=== PATIENT | male | born 1960 | race African-American/Black ===

== ENCOUNTER 2016-06-18 13:26 | Emergency (ER) | payer MEDICAID ==
[~2016-06-18] VITALS: Ht 185.4 cm; Wt 111.1 kg
[2016-06-18] MEDS ORDERED: Lidocaine 1% Plain 30 ml INJ ONE (13:49)
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
[2016-06-18] MEDS ORDERED: SILVADENE20 GM TP (14:30)
[2016-06-18] MEDS ORDERED: Silver Sulfadiazine Cream 25gm TOPIC ONE (14:30)
[2016-06-18] MEDS ORDERED: HYDROCHLOROTHIA25 MG ORAL (14:42)
[2016-06-18 15:15] VITALS: BP 138/89
--- NOTE | 2016-06-19 12:17 | Cardiology Report ---
APPROVED REPORT EKG Measurement Heart [id number] Normal sinus rhythm Nonspecific T wave abnormality Abnormal ECG
--- NOTE | 2016-06-21 09:37 | Diagnostic Imaging Report ---
Indication: SOB Technique: One view of the chest Comparison: none Findings: Lungs and pleural spaces are clear. Heart size is normal. Impression: No acute process This agrees with the preliminary interpretation provided by the emergency room physician.
== END 2016-06-18 15:15 | disposition home or self-care (01) ==
LOC: EMR 14:10
DX: R60.0 Localized edema (principal); T25.321A Burn of third degree of right foot, initial encounter; X58.XXXA Exposure to other specified factors, initial encounter; Y92.9 Unspecified place or not applicable; Y99.8 Other external cause status
CPT/HCPCS: 71010; 93005; 99284; J2001

== ENCOUNTER 2017-04-13 12:52 | Emergency (ER) | payer MEDICAID, OTHER ==
[~2017-04-13] VITALS: Ht 185.4 cm; Wt 99.8 kg
[~2017-04-13 12:52] MED LIST: HYDROCHLOROTHIA25 MG ORAL; SILVADENE20 GM TP
--- NOTE | 2017-04-13 13:13 | Emergency Room Report ---
History of Present Illness General Chief Complaint: Abdominal Pain Source: Patient Present Illness HPI Patient presents with complaints of diarrhea Lower abdominal pain bilaterally 8 out of 10 pain Denies any obvious blood in the stool however he felt that he had some blood in the urine Denies any chest pain or shortness of breath Pain is fairly localized the lower abdomen bilaterally Denies any dysuria Patient had questionable low-grade fever Denies any recent travel denies any previous surgery Allergies: Coded Allergies: No Known Allergies (Unverified , 06/18/16) Patient History Past Medical History: see triage record Pertinent Family History: none Reviewed Nursing Documentation: PMH: Agreed, PSxH: Agreed Nursing Documentation-PMH Hx Cardiac Problems: No Hx Hypertension: No Hx Pacemaker: No Hx Asthma: No Hx COPD: No Hx Diabetes: No Hx Cancer: No Hx Dialysis: No History Of Psychiatric Problem: No Hx Neurological Problems: No Hx Cerebrovascular Accident: No Hx Seizures: No Review of Systems All Other Systems: negative except mentioned in HPI Physical Exam Vital Signs Date Time Temp Pulse Resp B/P (MAP) Pulse Ox O2 Delivery O2 Flow Rate FiO2 04/13/17 13:00 98.2 82 18 162/91 97 Room Air Sp02 EP Interpretation: reviewed, normal General Appearance: well appearing, no apparent distress Head: normocephalic, atraumatic Eyes: bilateral eye PERRL, bilateral eye EOMI ENT: hearing grossly normal, normal pharynx, TMs + canals normal, uvula midline Neck: full range of motion, supple, no meningismus, no bony tend Respiratory: lungs clear, normal breath sounds, no rhonchi, no respiratory distress, no retraction, no accessory muscle use Cardiovascular #1: normal peripheral pulses, regular rate, rhythm, no edema, no gallop, no JVD, no murmur Gastrointestinal: normal bowel sounds, soft, no mass, no organomegaly, non- distended, no guarding, no hernia, no pulsatile mass, no rebound, tenderness - Diffusely however no obvious peritoneal finding, Genitourinary: no CVA tenderness Musculoskeletal: normal inspection Neurologic: oriented x3, responsive, base engineer III-XII nml as tested, motor strength/ tone normal, sensory intact Psychiatric: mood/affect normal Skin: normal color, no rash, warm/dry, palpation normal Lymphatic: normal inspection, no adenopathy Medical Decision Making Diagnostic Impression: Primary Impression: Abdominal pain ER Course With the history exam and presentation, multiple differentials considered, including but not limited to appendicitis, gastritis, cholecystitis, diverticulitis Patient's blood work and imaging did not show any obvious acute disease Patient feel significantly better Bladder is mildly thick on the CAT scan however urine sample was clear Patient was placed on antibiotics given the duration of diarrhea And will have close outpatient followup Labs Test 04/13/17 13:13 04/13/17 13:30 Urine Color Pale yellow Urine Appearance Clear Urine pH 5 (4.5-8.0) Urine Specific [place] 1.005 (1.005-1.035) Urine Protein Negative (NEGATIVE) Urine Glucose (UA) Negative (NEGATIVE) Urine Ketones Negative (NEGATIVE) Urine Occult Blood Negative (NEGATIVE) Urine Nitrite Negative (NEGATIVE) Urine Bilirubin Negative (NEGATIVE) Urine Urobilinogen Normal MG/DL (0.0-1.0) Urine Leukocyte Esterase Negative (NEGATIVE) White Blood Count 6.3 K/UL (4.8-10.8) Red Blood Count 4.54 M/UL (4.70-6.10) Hemoglobin 15.7 G/DL (14.2-18.0) Hematocrit 43.6 % (42.0-52.0) Mean Corpuscular Volume 96 FL (80-99) Mean Corpuscular Hemoglobin 34.6 PG (27.0-31.0) Mean Corpuscular Hemoglobin Concent 36.0 G/DL (32.0-36.0) Red Cell Distribution Width 10.4 % (11.6-14.8) Platelet Count 119 K/UL (150-450) Mean Platelet Volume 10.6 FL (6.5-10.1) Neutrophils (%) (Auto) 59.9 % (45.0-75.0) Lymphocytes (%) (Auto) 32.2 % (20.0-45.0) Monocytes (%) (Auto) 5.9 % (1.0-10.0) Eosinophils (%) (Auto) 1.0 % (0.0-3.0) Basophils (%) (Auto) 1.1 % (0.0-2.0) Sodium Level 138 MMOL/L (136-145) Potassium Level 3.3 MMOL/L (3.5-5.1) Chloride Level 104 MMOL/L (98-107) Carbon Dioxide Level 21 MMOL/L (21-32) Anion Gap 13 mmol/L (5-15) Blood Urea Nitrogen 13 mg/dL (7-18) Creatinine 1.1 MG/DL (0.55-1.30) Estimat Glomerular Filtration Rate > 60 mL/min (>60) Glucose Level 103 MG/DL (74-106) Calcium Level 9.2 MG/DL (8.5-10.1) Total Bilirubin 0.5 MG/DL (0.2-1.0) Aspartate Amino Transf (AST/SGOT) 25 U/L (15-37) Alanine Aminotransferase (ALT/SGPT) 39 U/L (12-78) Alkaline Phosphatase 65 U/L (46-116) Total Protein 7.7 G/DL (6.4-8.2) Albumin 3.6 G/DL (3.4-5.0) Globulin 4.1 g/dL Albumin/Globulin Ratio 0.9 (1.0-2.7) Lipase 225 U/L (73-393) CT/MRI/US Diagnostic Results CT/MRI/US Diagnostic Results : Impression CT abdomen pelvis: no acute disease Last Vital Signs Date Time Temp Pulse Resp B/P (MAP) Pulse Ox O2 Delivery O2 Flow Rate FiO2 04/13/17 13:00 98.2 82 18 162/91 97 Room Air Status: improved Disposition: HOME, SELF-CARE Condition: Improved Scripts Acetaminophen With Codeine (T#3) (TYLENOL #3 TAB*) Y Tab 1 TAB ORAL Q8H Y for For Pain, #12 TAB Prov: ENRIQUE YOUNG D.O. 04/13/17 Ciprofloxacin Hcl* (CIPROFLOXACIN HCL*) 500 Mg Tablet 500 MG ORAL Q12H, #10 TAB 0 Refills Prov: ENRIQUE YOUNG D.O. 04/13/17 Additional Instructions: Patient is provided with the discharge instructions notified to follow up with primary doctor in the next 2-3 days otherwise return to the er with any worsening symptoms. Please note that this report is being documented using [employer] technology. This can lead to erroneous entry secondary to incorrect interpretation by the dictating instrument. ENRIQUE YOUNG D.O. Apr 13, 2017 13:13
[2017-04-13] MEDS ORDERED: Morphine Sulfate 4mg/ml Inj IVP ONE (13:15)
[2017-04-13 13:26] LABS: APPEARANCE,URINE CLEAR; KETONES,URINE NEGATIVE (NEGATIVE); LEUKOCYTE ESTERASE ,URINE NEGATIVE (NEGATIVE); NITRITE,URINE NEGATIVE (NEGATIVE); PH,URINE 5 (4.5-8.0); PROTEIN,URINE NEGATIVE (NEGATIVE); UROBILINOGEN,URINE NORMAL MG/DL (0.0-1.0)
[2017-04-13 13:30] VITALS: BP 155/96
[2017-04-13 13:42] LABS: BASOPHILS % (AUTO) 1.1 % (0.0-2.0); LYMPHOCYTES % (AUTO) 32.2 % (20.0-45.0); MEAN CORPUSCULAR HEMOGLOBIN 34.6 PG (27.0-31.0); MEAN CORPUSCULAR VOLUME 96 FL (80-99); MEAN PLATELET VOLUME 10.6 FL (6.5-10.1); MONOCYTES % (AUTO) 5.9 % (1.0-10.0); NEUTROPHILS % (AUTO) 59.9 % (45.0-75.0); PLATELET COUNT 119 K/UL (150-450); RED BLOOD COUNT 4.54 M/UL (4.70-6.10); RED CELL DISTRIBUTION WIDTH 10.4 % (11.6-14.8); WHITE BLOOD COUNT 6.3 K/UL (4.8-10.8)
[2017-04-13 13:53] LABS: ANION GAP 13 mmol/L (5-15); CALCIUM 9.2 MG/DL (8.5-10.1); CARBON DIOXIDE 21 MMOL/L (21-32); CHLORIDE 104 MMOL/L (98-107); CREATININE 1.1 MG/DL (0.55-1.30); GLOMERULAR FILTRATION RATE > 60 mL/min (>60); POTASSIUM 3.3 MMOL/L (3.5-5.1); SODIUM 138 MMOL/L (136-145)
[2017-04-13 13:58] LABS: ALANINE AMINOTRANSFERASE 39 U/L (12-78); ALBUMIN/GLOBULIN RATIO 0.9 (1.0-2.7); ASPARTATE AMINO TRANSFERASE 25 U/L (15-37); LIPASE 225 U/L (73-393); TOTAL PROTEIN 7.7 G/DL (6.4-8.2)
[2017-04-13] MEDS ORDERED: CIPROFLOXACIN500 M2 ORAL (14:37)
[2017-04-13] MEDS ORDERED: ACETAMINOPHEN-1 EAC1 ORAL (14:37)
[2017-04-13 15:44] VITALS: BP 148/88
--- NOTE | 2017-04-14 10:50 | Diagnostic Imaging Report ---
Indication: Abdominal pain Technique: CT of the abdomen and pelvis utilizing automated exposure control with intravenous contrast. Venous scanning performed. CT dose: Total DLP 889 mGycm; CTDI vol 17.5 mGy Comparison: None Findings: Lung bases are clear. The liver, adrenal glands, spleen and pancreas are grossly unremarkable. No CT evident gallstones are identified. The kidneys are unremarkable. There is limited evaluation of the bowel without oral contrast. No mechanical small bowel obstruction is identified. There is no appendicitis. There is mild colonic diverticulosis without diverticulitis. Small fat-containing bilateral inguinal hernias are seen. The bladder appears thickened. Atherosclerotic changes are present. Degenerative changes of the spine are seen. There is anterolisthesis of L5 on S1 with bilateral L5 pars defects. There is severe disc space narrowing and endplate sclerosis of L5/S1. Degenerative changes of the bilateral hips are also seen. Impression: Bladder wall thickening may be secondary to chronic outlet obstruction, inflammatory or neoplastic. Clinical correlation recommended. Small fat-containing bilateral inguinal hernias. Anterolisthesis of L5 on S1 with bilateral L5 pars defects. The CT scanner at [facility] is accredited by the [employer] and the scans are performed using protocols designed to limit radiation exposure to as low as reasonably achievable to attain images of sufficient resolution adequate for diagnostic evaluation.
== END 2017-04-13 15:48 | disposition home or self-care (01) ==
LOC: EMR 13:36
DX: R10.30 Lower abdominal pain, unspecified (principal); R19.7 Diarrhea, unspecified; K40.20 Bilateral inguinal hernia, without obstruction or gangrene, not specified as recurrent
CPT/HCPCS: 36415; 74177; 80053; 81003; 83690; 85025; 96374; 96375; 99284; J2270; J2405; Q9967

== ENCOUNTER 2017-04-28 20:23 | Emergency (ER) | payer OTHER ==
[~2017-04-28] VITALS: Ht 185.4 cm; Wt 104.3 kg
[~2017-04-28 20:23] MED LIST changes: +ACETAMINOPHEN-1 EAC1 ORAL; +CIPROFLOXACIN500 M2 ORAL
[2017-04-28 20:52] LABS: APPEARANCE,URINE CLEAR; KETONES,URINE NEGATIVE (NEGATIVE); LEUKOCYTE ESTERASE ,URINE 1+ (NEGATIVE); NITRITE,URINE NEGATIVE (NEGATIVE); PH,URINE 5 (4.5-8.0); PROTEIN,URINE NEGATIVE (NEGATIVE); UROBILINOGEN,URINE NORMAL MG/DL (0.0-1.0)
[2017-04-28 20:56] LABS: BACTERIA,URINE FEW /HPF; SQUAMOUS EPITHELIAL CELL,UR OCCASIONAL /LPF (NONE/OCC); WBC,URINE 0-2 /HPF (0 - 0)
[2017-04-28 21:43] VITALS: BP_SYST 137; BP_SYST 141; BP_DIAS 83; BP_DIAS 85
--- NOTE | 2017-04-29 07:31 | Emergency Room Report ---
History of Present Illness General Chief Complaint: Male Urogenital Problems Source: Patient Present Illness HPI Patient presents with reports of blood in his urine Patient was seen here recently for similar complaints At that time there was no evidence of any blood in the urine Patient reports that earlier today he had seen some discoloration of the urine However on obtaining urine sample in the ER he did not see any obvious clinical blood Patient denies any abdominal pain Denies any fevers or chills Denies any chest pain shortness of breath Denies any dysuria frequency Allergies: Coded Allergies: No Known Allergies (Unverified , 06/18/16) Patient History Past Medical History: see triage record Past Surgical History: none Reviewed Nursing Documentation: PMH: Agreed, PSxH: Agreed Nursing Documentation-PMH Past Medical History: No Stated History Hx Cardiac Problems: No Hx Hypertension: No Hx Pacemaker: No Hx Asthma: No Hx COPD: No Hx Diabetes: No Hx Cancer: No Hx Dialysis: No Hx Neurological Problems: No Hx Cerebrovascular Accident: No Hx Seizures: No Review of Systems All Other Systems: negative except mentioned in HPI Physical Exam Vital Signs Date Time Temp Pulse Resp B/P (MAP) Pulse Ox O2 Delivery O2 Flow Rate FiO2 04/28/17 20:29 97.9 92 17 137/85 98 Room Air Sp02 EP Interpretation: reviewed, normal General Appearance: well appearing, no apparent distress Head: normocephalic, atraumatic Eyes: bilateral eye PERRL, bilateral eye EOMI ENT: hearing grossly normal, normal pharynx, TMs + canals normal, uvula midline Neck: full range of motion, supple, no meningismus, no bony tend Respiratory: lungs clear, normal breath sounds, no rhonchi, no respiratory distress, no retraction, no accessory muscle use Cardiovascular #1: normal peripheral pulses, regular rate, rhythm, no edema, no gallop, no JVD, no murmur Gastrointestinal: normal bowel sounds, non tender, soft, no mass, no organomegaly, non-distended, no guarding, no hernia, no pulsatile mass, no rebound Genitourinary: no CVA tenderness Musculoskeletal: normal inspection Neurologic: oriented x3, responsive, shank faker III-XII nml as tested, motor strength/ tone normal, sensory intact Psychiatric: mood/affect normal Skin: normal color, no rash, warm/dry, palpation normal Lymphatic: normal inspection, no adenopathy Medical Decision Making Diagnostic Impression: Primary Impression: hematuria ER Course Multiple differentials considered including but not limited to kidney stone, cancer, infectious Patient's workup reviewed from previous Urine sample today do show some microscopic blood Patient was discussed regarding his previous CAT scan And the thickening of the bladder wall Patient has not seen his primary physician since his last discharge it was again discussed the importance of followup with his primary physician for urology referral As the patient requires a cystoscopy for close evaluation and possible biopsy of the bladder Patient verbalizes understanding and will have close followup Labs Test 04/28/17 20:43 Urine Color Pale yellow Urine Appearance Clear Urine pH 5 (4.5-8.0) Urine Specific [place] 1.010 (1.005-1.035) Urine Protein Negative (NEGATIVE) Urine Glucose (UA) Negative (NEGATIVE) Urine Ketones Negative (NEGATIVE) Urine Occult Blood 5+ (NEGATIVE) Urine Nitrite Negative (NEGATIVE) Urine Bilirubin Negative (NEGATIVE) Urine Urobilinogen Normal MG/DL (0.0-1.0) Urine Leukocyte Esterase 1+ (NEGATIVE) Urine RBC 10-15 /HPF (0 - 0) Urine WBC 0-2 /HPF (0 - 0) Urine Squamous Epithelial Cells Occasional /LPF Urine Bacteria Few /HPF (NONE) Last Vital Signs Date Time Temp Pulse Resp B/P (MAP) Pulse Ox O2 Delivery O2 Flow Rate FiO2 04/28/17 21:43 97.9 76 17 141/83 98 Room Air Status: unchanged Disposition: HOME, SELF-CARE Condition: Stable Referrals: NOT CHOSEN IPA/MD,REFERRING (PCP) Patient Instructions: Hematuria, Adult Additional Instructions: Your urine sample showed some microscopic evidence of blood, your CAT scan had also shown some thickening of the bladder wall. He require a cystoscopy ( camera into the bladder) with possible biopsy for further evaluation. This is an outpatient process However it does require urgent followup with your primary physician ENRIQUE YOUNG D.O. Apr 29, 2017 07:31
== END 2017-04-28 21:41 | disposition home or self-care (01) ==
LOC: EMR 20:56
DX: R31.9 Hematuria, unspecified (principal)
CPT/HCPCS: 81003; 99282

== ENCOUNTER 2018-02-07 06:21 | Emergency (ER) | payer OTHER ==
[~2018-02-07] VITALS: Ht 185.4 cm; Wt 108.9 kg
--- NOTE | 2018-02-07 06:24 | Emergency Room Report ---
History of Present Illness General Source: EMS (Jeff Otoole MD) Present Illness HPI Patient is a 57-year-old male who presented after increased abdominal pain. Patient reports having right-sided abdominal pain. The distal been present for one day. Patient reports having recent heavy alcohol consumption. He cannot quantify this. He denies any hematemesis. He reports having multiple episodes of vomiting. He denies bloody stool. He states that he had similar symptoms in the past was diagnosed with pancreatitis at the time.Patient was sharp in nature. (Jeff Otoole MD) Allergies: Coded Allergies: No Known Allergies (Unverified , 06/18/16) Patient History Past Medical History: see triage record, other - pancreatitis Reviewed Nursing Documentation: PMH: Agreed; PSxH: Agreed (Jeff Otoole MD) Nursing Documentation-PMH Hx Cardiac Problems: No Hx Hypertension: No Hx Pacemaker: No Hx Asthma: No Hx COPD: No Hx Diabetes: No Hx Cancer: No Hx Dialysis: No Hx Neurological Problems: No Hx Cerebrovascular Accident: No Hx Seizures: No (Jeff Otoole MD) Review of Systems All Other Systems: negative except mentioned in HPI (Jeff Otoole MD) Physical Exam Sp02 EP Interpretation: reviewed, normal General Appearance: normal inspection, well appearing, no apparent distress, alert, GCS 15, obese, Chronically Ill Head: atraumatic ENT: normal ENT inspection, hearing grossly normal, normal voice Neck: normal inspection, full range of motion, supple, no bony tend Respiratory: normal inspection, lungs clear, normal breath sounds, no respiratory distress, no retraction, no wheezing Cardiovascular #1: regular rate, rhythm, edema - trace Gastrointestinal: normal inspection, normal bowel sounds, soft, tenderness Genitourinary: no CVA tenderness Musculoskeletal: normal inspection, back normal, normal range of motion Neurologic: normal inspection, alert, oriented x3, responsive, watch inspector III-XII nml as tested, speech normal Psychiatric: normal inspection, judgement/insight normal, mood/affect normal Skin: normal inspection, normal color, no rash (Jeff Otoole MD) Medical Decision Making Diagnostic Impression: Primary Impression: Abdominal pain Qualified Codes: R10.9 - Unspecified abdominal pain Additional Impressions: Acute pancreatitis Qualified Codes: K85.20 - Alcohol induced acute pancreatitis without necrosis or infection Alcohol abuse ER Course Patient presented for abdominal pain. Differential diagnoses included ischemic bowel, appendicitis, perforated viscus, abdominal aortic aneurysm, inferior myocardial infarction, viral gastroenteritis Because of complexity of patient's case laboratory testing and imaging studies were ordered.The patient noted to have of prior history of pancreatitis. Patient given IV fluids as well as IV pain medications. (Jeff Otoole MD) ER Course Please see above note from Dr. Otoole. Abd exam soft. Points to L anterior flank as area of pain. No referred pain or rebound. Analgesia ordered along with Pepcid and fluids. Await labs and eval. Lipase 500. Ultrasound ordered. Repeated morphine. u/s No stones. Calling Dr. Beyer for transfer. Laboratory Tests Test 02/07/18 06:30 02/07/18 06:55 White Blood Count 6.7 K/UL (4.8-10.8) Red Blood Count 4.94 M/UL (4.70-6.10) Hemoglobin 16.1 G/DL (14.2-18.0) Hematocrit 45.4 % (42.0-52.0) Mean Corpuscular Volume 92 FL (80-99) Mean Corpuscular Hemoglobin 32.5 PG (27.0-31.0) H Mean Corpuscular Hemoglobin Concent 35.4 G/DL (32.0-36.0) Red Cell Distribution Width 10.7 % (11.6-14.8) L Platelet Count 133 K/UL (150-450) L Mean Platelet Volume 10.4 FL (6.5-10.1) H Neutrophils (%) (Auto) 61.8 % (45.0-75.0) Lymphocytes (%) (Auto) 29.2 % (20.0-45.0) Monocytes (%) (Auto) 5.1 % (1.0-10.0) Eosinophils (%) (Auto) 2.3 % (0.0-3.0) Basophils (%) (Auto) 1.6 % (0.0-2.0) Prothrombin Time 11.4 SEC (9.30-11.50) Prothrombin Time INR 1.1 (0.9-1.1) PTT 28 SEC (23-33) Sodium Level 134 MMOL/L (136-145) L Potassium Level 4.2 MMOL/L (3.5-5.1) Chloride Level 102 MMOL/L (98-107) Carbon Dioxide Level 23 MMOL/L (21-32) Anion Gap 9 mmol/L (5-15) Blood Urea Nitrogen 16 mg/dL (7-18) Creatinine 1.0 MG/DL (0.55-1.30) Estimate Glomerular Filtration Rate > 60 mL/min (>60) Glucose Level 96 MG/DL (74-106) Calcium Level 8.8 MG/DL (8.5-10.1) Total Bilirubin 0.7 MG/DL (0.2-1.0) Aspartate Amino Transferase (AST) 35 U/L (15-37) Alanine Aminotransferase (ALT) 27 U/L (12-78) Alkaline Phosphatase 65 U/L (46-116) Troponin I 0.000 ng/mL (0.000-0.056) Total Protein 7.9 G/DL (6.4-8.2) Albumin 3.7 G/DL (3.4-5.0) Globulin 4.2 g/dL Albumin/Globulin Ratio 0.9 (1.0-2.7) L Amylase Level 86 U/L (25-115) Lipase 500 U/L (73-393) H Serum Alcohol < 3 mg/dL Urine Color Yellow Urine Appearance Clear Urine pH 5 (4.5-8.0) Urine Specific [place] 1.025 (1.005-1.035) Urine Protein Negative (NEGATIVE) Urine Glucose (UA) Negative (NEGATIVE) Urine Ketones Negative (NEGATIVE) Urine Blood 2+ (NEGATIVE) H Urine Nitrite Negative (NEGATIVE) Urine Bilirubin Negative (NEGATIVE) Urine Urobilinogen Normal MG/DL (0.0-1.0) Urine Leukocyte Esterase 1+ (NEGATIVE) H Urine RBC 2-4 /HPF (0 - 0) H Urine WBC 2-4 /HPF (0 - 0) Urine Squamous Epithelial Cells Few /LPF (NONE/OCC) Urine Bacteria Occasional /HPF (NONE) (Luis Flanagan M.D.) EKG Diagnostic Results Rate: normal Rhythm: NSR ST Segments: no acute changes - NSSTTW changes (Luis Flanagan M.D.) Rhythm Strip Diag. Results EP Interpretation: yes Rhythm: NSR, no PVC's, no ectopy (Luis Flanagan M.D.) CT/MRI/US Diagnostic Results CT/MRI/US Diagnostic Results : Imaging Test Ordered: U/S Impression Impression: Essentially unremarkable exam. Negative for gallstones or dilated ducts Incidental finding small left renal cyst (Luis Flanagan M.D.) Last Vital Signs Date Time Temp Pulse Resp B/P (MAP) Pulse Ox O2 Delivery O2 Flow Rate FiO2 02/07/18 10:58 98.5 02/07/18 10:33 87 17 167/91 96 Room Air Status: improved (Luis Flanagan M.D.) Disposition: XFER SHT-TRM HOSP Condition: Serious Jeff Otoole MD Feb 07, 2018 06:24 Luis Flanagan M.D. Feb 07, 2018 06:41
[2018-02-07 06:25] VITALS: BP 181/98
[2018-02-07] MEDS ORDERED: NKM (06:27)
[2018-02-07] MEDS ORDERED: Morphine Sulfate 4mg/ml Inj (IV USE ONLY) IVP ONE ×3 (06:30→10:30)
[2018-02-07 06:56] LABS: BASOPHILS % (AUTO) 1.6 % (0.0-2.0); EOSINOPHILS % (AUTO) 2.3 % (0.0-3.0); HEMATOCRIT 45.4 % (42.0-52.0); HEMOGLOBIN 16.1 G/DL (14.2-18.0); LYMPHOCYTES % (AUTO) 29.2 % (20.0-45.0); MEAN CORPUSCULAR VOLUME 92 FL (80-99); MONOCYTES % (AUTO) 5.1 % (1.0-10.0); NEUTROPHILS % (AUTO) 61.8 % (45.0-75.0); PLATELET COUNT 133 K/UL (150-450); RED BLOOD COUNT 4.94 M/UL (4.70-6.10); RED CELL DISTRIBUTION WIDTH 10.7 % (11.6-14.8); WHITE BLOOD COUNT 6.7 K/UL (4.8-10.8)
[2018-02-07 07:06] LABS: INR 1.1 (0.9-1.1)
[2018-02-07 07:14] LABS: APPEARANCE,URINE CLEAR; BILIRUBIN, URINE NEGATIVE (NEGATIVE); GLUCOSE, URINE (UA) NEGATIVE (NEGATIVE); KETONES,URINE NEGATIVE (NEGATIVE); LEUKOCYTE ESTERASE ,URINE 1+ (NEGATIVE); NITRITE,URINE NEGATIVE (NEGATIVE); PH,URINE 5 (4.5-8.0); PROTEIN,URINE NEGATIVE (NEGATIVE); UROBILINOGEN,URINE NORMAL MG/DL (0.0-1.0)
[2018-02-07 07:20] VITALS: BP 164/86
[2018-02-07 07:27] LABS: COLOR,URINE YELLOW
[2018-02-07 07:27] LABS: ANION GAP 9 mmol/L (5-15); BLOOD UREA NITROGEN 16 mg/dL (7-18); CALCIUM 8.8 MG/DL (8.5-10.1); CARBON DIOXIDE 23 MMOL/L (21-32); CHLORIDE 102 MMOL/L (98-107); POTASSIUM 4.2 MMOL/L (3.5-5.1); SODIUM 134 MMOL/L (136-145)
[2018-02-07 07:29] LABS: ALANINE AMINOTRANSFERASE 27 U/L (12-78); ALBUMIN 3.7 G/DL (3.4-5.0); ALBUMIN/GLOBULIN RATIO 0.9 (1.0-2.7); ALKALINE PHOSPHATASE 65 U/L (46-116); AMYLASE 86 U/L (25-115); ASPARTATE AMINO TRANSFERASE 35 U/L (15-37); BILIRUBIN,TOTAL 0.7 MG/DL (0.2-1.0)
[2018-02-07 08:30] VITALS: BP 167/91
--- NOTE | 2018-02-07 09:38 | Diagnostic Imaging Report ---
Indication: Abdominal pain, vomiting, right-sided abdominal pain, abnormal lipase Technique: Verma-scale and duplex images of the upper abdomen were obtained Comparison: Reference made to abdomen and pelvis CT dated 04/13/2017 Findings: Gallbladder is unremarkable, without stones, wall thickening, nor pericholecystic fluid. Sonographic Clay's sign is negative. Common bile duct measures 6 mm in diameter. No intrahepatic biliary ductal dilatation. Liver demonstrates normal echogenicity, no focal abnormality. Portal vein and hepatic veins are patent. Pancreas is unremarkable. Spleen is unremarkable. Left kidney measures 10.5 cm in length. Right kidney measures 10.9 cm length. Both kidneys demonstrate normal echogenicity. There is no hydronephrosis. Echogenic foci within the renal sinuses are probably artifactual as no calculi are demonstrated on prior CT scan. Small cyst is seen in the left renal upper pole . Non-aneurysmal abdominal aorta . Impression: Essentially unremarkable exam. Negative for gallstones or dilated ducts Incidental finding small left renal cyst
[2018-02-07 09:45] VITALS: BP 166/94
[2018-02-07 10:33] VITALS: BP 167/91
== END 2018-02-07 10:35 | disposition short-term general hospital (02) ==
LOC: EDBD 06:21 → EMR 06:39
DX: K85.20 Alcohol induced acute pancreatitis without necrosis or infection (principal); F10.10 Alcohol abuse, uncomplicated; N28.1 Cyst of kidney, acquired
CPT/HCPCS: 36415; 76700; 80053; 80329; 81003; 82150; 83690; 84484; 85025; 85610; 85730; 86850; 86900; 86901; 93005; 96361; 96374; 96375; 96376; 99284; J2270; J2405; S0028

== ENCOUNTER 2018-04-26 11:18 | Emergency (ER) | payer OTHER ==
[~2018-04-26] VITALS: Ht 185.4 cm; Wt 108.9 kg
[~2018-04-26 11:18] MED LIST changes: +NKM
[2018-04-26 11:35] VITALS: BP 179/99
[2018-04-26] MEDS ORDERED: Morphine Sulfate 10mg/ml Inj IVP ONE (12:15)
[2018-04-26 12:26] LABS: BASOPHILS % (AUTO) 0.8 % (0.0-2.0); HEMATOCRIT 46.2 % (42.0-52.0); HEMOGLOBIN 16.3 G/DL (14.2-18.0); LYMPHOCYTES % (AUTO) 19.7 % (20.0-45.0); MEAN CORPUSCULAR VOLUME 91 FL (80-99); MONOCYTES % (AUTO) 6.1 % (1.0-10.0); NEUTROPHILS % (AUTO) 72.5 % (45.0-75.0); PLATELET COUNT 161 K/UL (150-450); RED BLOOD COUNT 5.05 M/UL (4.70-6.10); RED CELL DISTRIBUTION WIDTH 10.9 % (11.6-14.8); WHITE BLOOD COUNT 8.7 K/UL (4.8-10.8)
[2018-04-26 12:43] LABS: ANION GAP 12 mmol/L (5-15); BLOOD UREA NITROGEN 15 mg/dL (7-18); CALCIUM 8.6 MG/DL (8.5-10.1); CARBON DIOXIDE 25 MMOL/L (21-32); CHLORIDE 99 MMOL/L (98-107); CREATININE 1.2 MG/DL (0.55-1.30); SODIUM 135 MMOL/L (136-145)
[2018-04-26 12:48] LABS: ALANINE AMINOTRANSFERASE 47 U/L (12-78); ALBUMIN 3.5 G/DL (3.4-5.0); ALBUMIN/GLOBULIN RATIO 0.8 (1.0-2.7); ALKALINE PHOSPHATASE 64 U/L (46-116); ASPARTATE AMINO TRANSFERASE 43 U/L (15-37); BILIRUBIN,TOTAL 0.6 MG/DL (0.2-1.0)
[2018-04-26] MEDS ORDERED: oxyCODONE HCL/Acetaminophen 5/325mg ORAL ONE ×2 (13:30→16:15)
[2018-04-26] MEDS ORDERED: Morphine Sulfate 4mg/ml Inj (IV/IM USE ONLY) IVP ONE (13:30)
[2018-04-26 13:40] VITALS: BP 165/70
--- NOTE | 2018-04-26 14:01 | Diagnostic Imaging Report ---
Clinical Indication: Abdominal pain, right lower quadrant pain, nausea, vomiting, diarrhea Technique: No oral contrast utilized, per emergency room physician request IV administration nonionic contrast. Venous phase spiral acquisition obtained through the abdomen and pelvis. Multiplanar reconstructions were generated. Total dose length product 909.53 mGycm. CTDIvol(s) 17.05 mGy. Dose reduction achieved using automated exposure control Comparison: 04/13/2017 Findings: There is infiltration of the peripancreatic fat. Ill-defined fluid is seen tracking along the fascial planes immediately adjacent to the pancreas, particularly the upper left paracolic gutter. The pancreas itself does not appear particularly swollen. No peripancreatic gas or discrete fluid collections demonstrated. The pancreas enhances normally. No pancreatic mass. No peripancreatic adenopathy. Findings are new since prior exam The gallbladder is unremarkable. The liver, bile ducts, spleen, adrenals, kidneys are unremarkable. No retroperitoneal or mesenteric mass or adenopathy. No pelvic mass or adenopathy. The bladder is mildly thick-walled. This is also evident previously. Lack of enteric contrast limits assessment of the GI tract. No evidence of diverticulosis or diverticulitis. The appendix is normal. No small bowel distention. No free or loculated intraperitoneal gas or fluid. The distal esophagus, stomach, duodenum are unremarkable. The bones demonstrate bilateral L5 spondylolysis, grade 1 L5 on S1 and spondylolisthesis, and secondary degenerative changes at L5-S1, also previously reported. The included lung bases demonstrate posterior dependent atelectatic changes on the right. Impression: Infiltration of the peripancreatic fat, small amount of fluid tracking along the adjacent fascial planes, consistent with uncomplicated nonnecrotizing acute pancreatitis. No evidence of associated discrete peripancreatic fluid collection or abscess. Correlate with laboratory findings Mild bladder wall thickening. Similarity to prior exam indicates this may be baseline for this patient, possibly on the basis of chronic outlet obstruction given degree of bladder distention. However, the possibility of cystitis should also be considered Bilateral L5 spondylolysis, grade 1 L5 on S1 spondylolisthesis, secondary degenerative changes, also previously reported The CT scanner at [facility] is accredited by the [employer] and the scans are performed using protocols designed to limit radiation exposure to as low as reasonably achievable to attain images of sufficient resolution adequate for diagnostic evaluation.
--- NOTE | 2018-04-26 14:48 | Emergency Room Report ---
History of Present Illness General Chief Complaint: Abdominal Pain Source: Patient, Medical Record Present Illness HPI Mr. Gomez is a pleasant 58 yo male with hx of alcoholic pancreatitis who presents with severe 10/10 pain in the epigastric region for severe days. Unbearable today. Severe sharp pain. Had been clean of alcohol for 3 months. Recent of brother prompted 3 week beer binge. +nausea. No fever. Gradual onset of pain. Pain does not change with movement. Allergies: Coded Allergies: No Known Allergies (Unverified , 06/18/16) Patient History Past Medical History: see triage record, old chart reviewed, other - pancreatitis Past Surgical History: other - no recent surgeries Pertinent Family History: unable to obtain Social History: Reports: alcohol use Reviewed Nursing Documentation: PMH: Agreed; PSxH: Agreed Nursing Documentation-PMH Past Medical History: No History, Except For Hx Cardiac Problems: No Hx Hypertension: No Hx Pacemaker: No Hx Asthma: No Hx COPD: No Hx Diabetes: No Hx Cancer: No Hx Gastrointestinal Problems: Yes - pancreatitis Hx Dialysis: No History Of Psychiatric Problem: No Hx Neurological Problems: No Hx Cerebrovascular Accident: No Hx Seizures: No Review of Systems Constitutional: Reports: malaise; Denies: fever Respiratory: Denies: cough Gastrointestinal: Reports: abdominal pain, nausea All Other Systems: negative except mentioned in HPI Physical Exam Vital Signs Date Time Temp Pulse Resp B/P (MAP) Pulse Ox O2 Delivery O2 Flow Rate FiO2 04/26/18 11:25 98.1 90 18 168/88 95 Room Air Sp02 EP Interpretation: reviewed, normal General Appearance: alert, GCS 15, severe distress - severe pain rocking in bed holding stomach Head: normocephalic, atraumatic Eyes: bilateral eye normal inspection ENT: hearing grossly normal, normal pharynx, no angioedema, normal voice Neck: full range of motion, supple/symm/no masses Respiratory: chest non-tender, lungs clear, normal breath sounds, no rhonchi, no respiratory distress, no retraction, no accessory muscle use, speaking full sentences Cardiovascular #1: regular rate, rhythm, no edema Cardiovascular #2: 2+ dorsalis pedis (R), 2+ dorsalis pedis (L) Gastrointestinal: normal bowel sounds, non tender, soft, no mass, no organomegaly, no peritonitis, no bruit, non-distended, no guarding, no rebound Musculoskeletal: back normal, gait/station normal, normal range of motion, non- tender, calf tenderness Neurologic: alert, oriented x3, responsive, motor strength/tone normal, sensory intact, speech normal Psychiatric: judgement/insight normal, memory normal, mood/affect normal, no suicidal/homicidal ideation Skin: normal color, no rash, warm/dry, well hydrated Lymphatic: no adenopathy Medical Decision Making Diagnostic Impression: Primary Impression: Acute pancreatitis Additional Impression: Alcoholic pancreatitis ER Course Mr. Gomez presents in severe persistent pain in spite multiple doses of analgesics. CT and elevated lipase confirm acute pancreatitis. No cyst or abscess involving the pancreatitis. Patient will be transferred to [facility]. Dr. Beyer accepted patient in transfer. Labs Test 04/26/18 11:45 White Blood Count 8.7 K/UL (4.8-10.8) Red Blood Count 5.05 M/UL (4.70-6.10) Hemoglobin 16.3 G/DL (14.2-18.0) Hematocrit 46.2 % (42.0-52.0) Mean Corpuscular Volume 91 FL (80-99) Mean Corpuscular Hemoglobin 32.3 PG (27.0-31.0) Mean Corpuscular Hemoglobin Concent 35.3 G/DL (32.0-36.0) Red Cell Distribution Width 10.9 % (11.6-14.8) Platelet Count 161 K/UL (150-450) Mean Platelet Volume 8.3 FL (6.5-10.1) Neutrophils (%) (Auto) 72.5 % (45.0-75.0) Lymphocytes (%) (Auto) 19.7 % (20.0-45.0) Monocytes (%) (Auto) 6.1 % (1.0-10.0) Eosinophils (%) (Auto) 1.0 % (0.0-3.0) Basophils (%) (Auto) 0.8 % (0.0-2.0) Sodium Level 135 MMOL/L (136-145) Potassium Level 4.0 MMOL/L (3.5-5.1) Chloride Level 99 MMOL/L (98-107) Carbon Dioxide Level 25 MMOL/L (21-32) Anion Gap 12 mmol/L (5-15) Blood Urea Nitrogen 15 mg/dL (7-18) Creatinine 1.2 MG/DL (0.55-1.30) Estimat Glomerular Filtration Rate > 60 mL/min (>60) Glucose Level 119 MG/DL (74-106) Calcium Level 8.6 MG/DL (8.5-10.1) Total Bilirubin 0.6 MG/DL (0.2-1.0) Aspartate Amino Transf (AST/SGOT) 43 U/L (15-37) Alanine Aminotransferase (ALT/SGPT) 47 U/L (12-78) Alkaline Phosphatase 64 U/L (46-116) Total Protein 8.0 G/DL (6.4-8.2) Albumin 3.5 G/DL (3.4-5.0) Globulin 4.5 g/dL Albumin/Globulin Ratio 0.8 (1.0-2.7) Lipase 817 U/L (73-393) Last Vital Signs Date Time Temp Pulse Resp B/P (MAP) Pulse Ox O2 Delivery O2 Flow Rate FiO2 04/26/18 13:40 98.4 80 18 165/70 98 Room Air Referrals: [facility] (PCP) Molly Becerra MD Apr 26, 2018 14:48
[2018-04-26] MEDS ORDERED: Ketorolac 30mg Inj IV ONE (16:15)
[2018-04-26 17:19] VITALS: BP 163/80
== END 2018-04-26 17:30 | disposition short-term general hospital (02) ==
LOC: EMR 12:35 → EDBEDREQ 13:51 → EMR 17:30
DX: K85.20 Alcohol induced acute pancreatitis without necrosis or infection (principal); M43.06 Spondylolysis, lumbar region
CPT/HCPCS: 36415; 74177; 80053; 83690; 85025; 96361; 96374; 96375; 96376; 99284; J1885; J2270; J2405; Q9967

== ENCOUNTER 2018-10-18 23:50 | Emergency (ER) | payer OTHER ==
[~2018-10-18] VITALS: Ht 185.4 cm; Wt 108.9 kg
[2018-10-19 00:02] VITALS: BP 147/90
--- NOTE | 2018-10-19 00:02 | NUR ---
ED Nurse Note: Pt arrived ED from home, C/o urinary blood and burning for 2 days. Pt is A/OX 4. Vital signs stable at this time, waiting for orders.
--- NOTE | 2018-10-19 00:03 | NUR ---
ED Nurse Note: Urine sample collected and sent to Lab.
[2018-10-19 00:17] LABS: APPEARANCE,URINE CLEAR; BILIRUBIN, URINE NEGATIVE (NEGATIVE); COLOR,URINE PALE YELLOW; GLUCOSE, URINE (UA) NEGATIVE (NEGATIVE); KETONES,URINE NEGATIVE (NEGATIVE); LEUKOCYTE ESTERASE ,URINE 1+ (NEGATIVE); NITRITE,URINE NEGATIVE (NEGATIVE); PH,URINE 5 (4.5-8.0); PROTEIN,URINE NEGATIVE (NEGATIVE); UROBILINOGEN,URINE NORMAL MG/DL (0.0-1.0)
[2018-10-19] MEDS ORDERED: CIPROFLOXACIN500 M2 ORAL (00:38)
[2018-10-19] MEDS ORDERED: FLOMAX0.4 MG ORAL (00:38)
--- NOTE | 2018-10-19 00:45 | Emergency Room Report ---
History of Present Illness General Chief Complaint: Male Urogenital Problems Source: Patient Present Illness HPI Patient sense with complaints of seeing evidence of trace blood on his underwear This has been ongoing for the past 2 days patient denies any pain Denies any testicular pain denies any fevers or chills Denies any abdominal pain Denies any flank pain Patient has had this presentation before He reports that he has not followed with anyone since previous visits here Patient reports that he is supposed to be going to the [facility] however has not had any follow-up Denies any dysuria or frequency Allergies: Coded Allergies: No Known Allergies (Unverified , 06/18/16) Patient History Past Medical History: see triage record Pertinent Family History: none Reviewed Nursing Documentation: PMH: Agreed; PSxH: Agreed Nursing Documentation-PMH Past Medical History: No Stated History Hx Cardiac Problems: No Hx Hypertension: No Hx Pacemaker: No Hx Asthma: No Hx COPD: No Hx Diabetes: No Hx Cancer: No Hx Gastrointestinal Problems: Yes - pancreatitis Hx Dialysis: No Hx Neurological Problems: No Hx Cerebrovascular Accident: No Hx Seizures: No Review of Systems All Other Systems: negative except mentioned in HPI Physical Exam Vital Signs Date Time Temp Pulse Resp B/P (MAP) Pulse Ox O2 Delivery O2 Flow Rate FiO2 10/18/18 23:53 98.1 85 17 151/92 (111) 95 Room Air Sp02 EP Interpretation: reviewed, normal General Appearance: well appearing, no apparent distress Head: normocephalic, atraumatic Eyes: bilateral eye PERRL, bilateral eye EOMI ENT: hearing grossly normal, normal pharynx, TMs + canals normal, uvula midline Neck: full range of motion, supple, no meningismus, no bony tend Respiratory: lungs clear, normal breath sounds, no rhonchi, no respiratory distress, no retraction, no accessory muscle use Cardiovascular #1: normal peripheral pulses, regular rate, rhythm, no edema, no gallop, no JVD, no murmur Gastrointestinal: normal bowel sounds, non tender, soft, no mass, no organomegaly, non-distended, no guarding, no hernia, no pulsatile mass, no rebound Genitourinary: no CVA tenderness Musculoskeletal: normal inspection Neurologic: oriented x3, responsive, 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, motor strength/ tone normal, sensory intact Psychiatric: mood/affect normal Skin: normal color, no rash, warm/dry, palpation normal Lymphatic: normal inspection, no adenopathy Medical Decision Making Diagnostic Impression: Primary Impression: hematuria ER Course Multiple differentials including but not limited to kidney stone, cancer, UTI Considered Patient's urine sample does show trace of blood Visually no obvious sign of gross blood Patient's previous workup was discussed with him including CAT scans and blood work Is again discussed the importance of close follow-up for further specialty referral and cystoscopy as needed Possibility of bladder cancer versus prostate disease also discussed Patient has full decision-making capacity Reports that he will make better attempt to follow-up Labs Test 10/19/18 00:04 Urine Color Pale yellow Urine Appearance Clear Urine pH 5 (4.5-8.0) Urine Specific [place] 1.010 (1.005-1.035) Urine Protein Negative (NEGATIVE) Urine Glucose (UA) Negative (NEGATIVE) Urine Ketones Negative (NEGATIVE) Urine Blood 5+ (NEGATIVE) Urine Nitrite Negative (NEGATIVE) Urine Bilirubin Negative (NEGATIVE) Urine Urobilinogen Normal MG/DL (0.0-1.0) Urine Leukocyte Esterase 1+ (NEGATIVE) Urine RBC 0-2 /HPF (0 - 0) Urine WBC 0-2 /HPF (0 - 0) Urine Squamous Epithelial Cells Occasional /LPF Urine Bacteria Occasional /HPF (NONE) Last Vital Signs Date Time Temp Pulse Resp B/P (MAP) Pulse Ox O2 Delivery O2 Flow Rate FiO2 10/18/18 23:53 98.1 85 17 151/92 (111) 95 Room Air Status: unchanged Disposition: HOME, SELF-CARE Condition: Stable Scripts Tamsulosin HCl (Flomax) 0.4 Mg Cap.er.24h 0.4 MG ORAL DAILY, #12 CAP Prov: Tarsha Gomez DO 10/19/18 Ciprofloxacin Hcl* (CIPROFLOXACIN HCL*) 500 Mg Tablet 500 MG ORAL Q12H, #14 TAB 0 Refills Prov: Tarsha Gomez DO 10/19/18 Referrals: [facility] (PCP) Patient Instructions: Hematuria, Adult Additional Instructions: As discussed previously close follow-up with primary physician with urology referral is crucial. This was discussed approximately a year ago on several different occasions as well. You have reported that you have not see her primary physician or any other specialist since previous visits here, lack of appropriate follow-up can delay diagnoses and other care as needed Tarsha Gomez DO Oct 19, 2018 00:45
[2018-10-19 00:48] VITALS: BP 147/90
--- NOTE | 2018-10-19 00:48 | NUR ---
ER DISCHARGE NOTE: Patient is cleared to be discharged per Dr. Gomez. Pt is aox4 on room air with stable vital signs. Pt was given dc and prescription instructions and was able to verbalize understanding. Pt id band removed. Pt is able to ambulate with steady gait and took all belongings.
== END 2018-10-19 00:48 | disposition home or self-care (01) ==
LOC: EMR 23:59
DX: R31.9 Hematuria, unspecified (principal)
CPT/HCPCS: 81003; 99283